=== PATIENT | male | born 1970 | race Hispanic/Latino ===

== ENCOUNTER 2021-08-13 10:03 | Day surgery (SDC) | payer SELFPAY ==
[~2021-08-13] VITALS: Ht 167.6 cm; Wt 100.2 kg
[2021-08-13] MEDS ORDERED: PERCOCET 5/325M1 TAB PO (11:56)
[2021-08-13 13:56] VITALS: BP 142/81
== END 2021-08-13 13:51 | disposition home or self-care (01) | DRG 419 ==
LOC: ORM 10:03
PROVIDERS: ATTEND Surgery
PROC: 0FT44ZZ Resection of Gallbladder, Percutaneous Endoscopic Approach (ICD-10-PCS; principal; 2021-08-13)
PROC: 0DJD8ZZ Inspection of Lower Intestinal Tract, Via Natural or Artificial Opening Endoscopic (ICD-10-PCS; 2021-08-13)
DX: K80.10 Calculus of gallbladder with chronic cholecystitis without obstruction (principal); Z12.11 Encounter for screening for malignant neoplasm of colon
CPT/HCPCS: J0131; J1610; Q9967